=== PATIENT | female | born 1940 | race Caucasian/White ===

== ENCOUNTER 2017-07-28 22:07 | Emergency (ER) | payer MEDICARE ==
[~2017-07-28] VITALS: Ht 165.1 cm; Wt 68.0 kg
[~2017-07-28 22:07] MED LIST: GLIPIZIDE XL10 MG PO; GLIPIZIDE XL5 MG PO; GLUCOSAMINE &1 EAC1 PO; LEVOTHYROXINE88 MCG PO; MULTIVITAMINS1 EAC7 PO; VITAMIN D3400 UNIT PO; VITAMIN E200 UNI1 PO
[2017-07-28] MEDS ORDERED: JARDIANCE10 MG PO (22:43)
--- NOTE | 2017-07-29 07:27 | EKG ---
[facility] [address] [facility] [place] [address] Signed Normal sinus rhythm Nonspecific ST abnormality Abnormal ECG When compared with ECG of 28-JUL-2017 22:14, (Unconfirmed) premature ventricular complexes are no longer present Confirmed by UNA ADAMS MD ([id number]) on 07/29/2017 7:27:22 AM Electronically Signed By: UNA ADAMS MD 07/29/17 0727 PATIENT NAME: AZUCENA MEANS Electrocardiogram DATE OF : 36 PHYSICIAN: UNA ADAMS MD REPORT #: [id number] REPORT IS CONFIDENTIAL AND NOT TO BE RELEASED WITHOUT AUTHORIZATION
== END 2017-07-29 01:20 | disposition home or self-care (01) ==
LOC: ED 22:07
DX: R07.89 Other chest pain (principal); E11.9 Type 2 diabetes mellitus without complications; Z90.710 Acquired absence of both cervix and uterus; Z90.49 Acquired absence of other specified parts of digestive tract; Z88.5 Allergy status to narcotic agent; Z79.84 Long term (current) use of oral hypoglycemic drugs; Z79.899 Other long term (current) drug therapy; Z88.8 Allergy status to other drugs, medicaments and biological substances
CPT/HCPCS: 71010; 71260; 80053; 82550; 82553; 83874; 84484; 85025; 85379; 85610; 85730; 93005; 93010; 96374; 99284; J1885; Q9967

== ENCOUNTER 2022-04-25 08:49 | Day surgery (SDC) | payer MEDICARE ==
[~2022-04-25] VITALS: Ht 167.6 cm; Wt 69.0 kg
[~2022-04-25 08:49] MED LIST changes: +BYETTA10 MCG/0.0 SUB-Q; +JARDIANCE10 MG PO
--- NOTE | 2022-04-25 17:27 | OR ---
[facility] [address] [place], [place] [address] Signed DATE OF OPERATION: 04/25/2022 SURGEON: Maribel Perez MD PREOPERATIVE DIAGNOSES: 1. Colonoscopy at age 68 in 2008 with two serrated adenomatous polyps removed, less than 5 mm each. 2. Diverticulosis. 3. 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 POSTOPERATIVE DIAGNOSES: 1. Moderate sigmoid diverticulosis. 2. 4 mm polyp at 55 cm. 3. No mass noted in right colon. PROCEDURE: Colonoscopy with hot biopsy. ESTIMATED BLOOD LOSS: None. INDICATIONS: Azucena is an 81-year-old female I have known for many years. I have helped her and her both in the past. In 2008, I helped her with her initial screening colonoscopy at the age of 68. She had two serrated adenomatous polyps removed. Both were less than 5 mm in diameter. She also has sigmoid diverticulosis. She had done well with Versed and fentanyl. We had asked her to follow up in 5 years for repeat colonoscopy. However, she has declined additional colonoscopies. Her primary care provider had retired and she established with a new primary care provider. She was having crampy lower abdominal pain after eating. It was more so on the right. She therefore underwent a CT scan of the abdomen and pelvis. There appears to be a 4 cm apple-core lesion in the right colon. Also, the diverticulosis in the left colon was noted. She was asked to see me expeditiously in the office. Her son and daughter came with her to the office. Her was not able to come on this occasion. Her daughter happens to be a registered nurse. On physical exam, I really cannot appreciate any mass in the right side of her abdomen. We had reviewed colonoscopy in detail. She understands there is risk including, but not limited to gas bloating, crampy abdominal pain, bleeding, perforation requiring surgery, and missed diagnosis. We also reviewed the need for IV conscious sedation. She had expressed understanding and wished to proceed. Electronically Signed By: MARIBEL PEREZ MD 04/25/22 1727 PATIENT NAME: AZUCENA MEANS OPERATIVE REPORT DATE OF : 36 REPORT #: [id number] PHYSICIAN: MARIBEL PEREZ MD PCP: JAIME TREVINO MD REPORT IS CONFIDENTIAL AND NOT TO BE RELEASED WITHOUT AUTHORIZATION [facility] [address] [place], [place] [address] Signed PROCEDURE NOTE: Azucena was taken into our endoscopy suite and placed in the left lateral decubitus position. She was given 4.5 mg of Versed and 100 mcg of fentanyl to cover the entire case. A digital rectal exam was performed and this was unremarkable. The adult colonoscope was then introduced and advanced under direct visualization of the camera. Azucena is somewhat tall with long arms and legs. Consequently her colon is somewhat long as well. It took a few minutes with some extra sedation and abdominal compression in order to get the scope up through her sigmoid colon. She has moderate diverticula in the sigmoid and left colon. After that, the scope passed fairly readily around to the right colon and then down into the cecum itself. Her prep was quite good. We could easily see the appendiceal orifice and the ileocecal valve. In fact, we turned the camera and went up into the terminal ileum just a few cm. We came back in the colon, we looked around very carefully. We withdrew the scope very slowly and with all of us watching very carefully in the room. We never could find any evidence of an apple-core lesion whatsoever anywhere in the right colon including the remainder of the colon. We did encounter a polyp back at 55 cm. It was easily removed with a hot biopsy forceps. The rectum itself was unremarkable. Upon retroflexion of the scope, there was no additional pathology noted above the anal canal. After this, the gas was suctioned out and the colonoscope removed. Azucena tolerated the procedure quite well. RECOMMENDATIONS: I did review the CT scan once again along with the images. It could be that she has an intermittent intussusception. She might consider a barium enema and/or small-bowel follow-through. I will see her back in the office in 7 to 14 days to review her results. Maribel Perez MD ALB/MODL /[id number] cc: MD Jaime Salgado MD Electronically Signed By: MARIBEL PEREZ MD 04/25/22 1727 PATIENT NAME: AZUCENA MEANS OPERATIVE REPORT DATE OF : 36 REPORT #: [id number] PHYSICIAN: MARIBEL PEREZ MD PCP: JAIME TREVINO MD REPORT IS CONFIDENTIAL AND NOT TO BE RELEASED WITHOUT AUTHORIZATION [address] [address] Signed Copies: MARIBEL PEREZ MD ~ Electronically Signed By: MARIBEL PEREZ MD 04/25/22 1727 PATIENT NAME: AZUCENA MEANS OPERATIVE REPORT DATE OF : 36 REPORT #: [id number] PHYSICIAN: MARIBEL PEREZ MD PCP: JAIME TREVINO MD REPORT IS CONFIDENTIAL AND NOT TO BE RELEASED WITHOUT AUTHORIZATION
--- NOTE | 2022-04-27 07:51 | PATH ---
[facility] [address] [place], [place] [address] Signed SPECIMEN(S): A COLON POLYP AT 50 CM SPECIMEN SOURCE: A. COLON POLYP AT 50 CM CLINICAL HISTORY: Colonoscopy. Neoplasm right colon. Post: Diverticulosis, colon polyp. FINAL PATHOLOGIC DIAGNOSIS: Colon, polyp at 50 cm, polypectomy: - Tubular adenoma. - Negative for high-grade dysplasia or malignancy. NAL:cml:C2NR MICROSCOPIC EXAMINATION: Histologic sections of all submitted blocks are examined by light microscopy. These findings, together with the gross examination, support the pathologic diagnosis. GROSS DESCRIPTION: The specimen, labeled "EE, 1," and designated on the requisition "colon polyp at 50 cm," is received in formalin and consists of one rojas soft tissue fragment that measures 0.3 cm in greatest dimension. The specimen is entirely submitted in cassette (A1). AT (under the direct supervision of a pathologist) The Gross Description was prepared using a voice recognition system. The report was reviewed for accuracy; however, sound-alike word errors, addition and/or deletions may occur. If there is any question about this report, please contact Client Services. PERFORMING LABORATORY: The technical component was performed by [facility], [address] [place] [id number] (CLIA# [id number]). [facility] [address] [address] (CLIA# [id number]). Diagnostician: Tigist Connors MD Pathologist Electronically Signed 04/27/2022 PATIENT NAME: AZUCENA MEANS PATHOLOGY DATE OF : 36 REPORT #: [id number] PHYSICIAN: HEIDY PATHOLOGY PCP: BIENVENIDO TREVINO MD REPORT IS CONFIDENTIAL AND NOT TO BE RELEASED WITHOUT AUTHORIZATION [address] [place], [place] [address] Signed Copies: ~ PATIENT NAME: AZUCENA MEANS PATHOLOGY DATE OF : 36 REPORT #: [id number] PHYSICIAN: HEIDY PATHOLOGY PCP: BIENVENIDO TREVINO MD REPORT IS CONFIDENTIAL AND NOT TO BE RELEASED WITHOUT AUTHORIZATION
== END 2022-04-25 13:15 | disposition home or self-care (01) ==
LOC: DS 08:49
PROVIDERS: ATTEND Colon & Rectal Surgery
PROC: 0DBE8ZX Excision of Large Intestine, Via Natural or Artificial Opening Endoscopic, Diagnostic (ICD-10-PCS; principal; 2022-04-25 10:30)
DX: D12.6 Benign neoplasm of colon, unspecified (principal); E03.9 Hypothyroidism, unspecified; E11.9 Type 2 diabetes mellitus without complications; K57.30 Diverticulosis of large intestine without perforation or abscess without bleeding; Z90.49 Acquired absence of other specified parts of digestive tract; Z79.84 Long term (current) use of oral hypoglycemic drugs; Z88.5 Allergy status to narcotic agent
CPT/HCPCS: 80053; 82378; 85025; 99153; G0500; J2250; J3010; J7121

== ENCOUNTER 2023-07-17 19:08 | Observation (INO) | payer MEDICARE ==
[~2023-07-17] VITALS: Ht 167.6 cm; Wt 69.0 kg
[2023-07-17 19:40] LABS: BASOPHILS 1.9 % (0-2); EOSINOPHILS 1.6 % (0-6); HEMATOCRIT 39.5 % (35.0-50.0); HEMOGLOBIN 12.9 g/dL (12.0-18.0); LYMPHOCYTES 15.2 % (24-44); MCH 29.8 (27-36); MCHC 32.8 g/dl (30-36); MCV 90.8 fl (81-99); NEUTROPHILS 72.3 % (39-80); PLATELET COUNT 158 K/uL (140-440); RBC 4.35 M/ul (4.3-5.7); RDW 13.6 (10.5-15.0)
[2023-07-17 19:52] LABS: ALBUMIN 3.5 g/dL (3.4-5.0); ANION GAP 13.9 (7-21); BILIRUBIN, TOTAL 0.4 ng/dL (0.2-1.0); BUN/CREATININE RATIO 16.66 (6.0-28.6); CALCIUM 9.5 mg/dL (8.5-10.1); CREATININE, SERUM 0.9 mg/dL (0.55-1.02); POTASSIUM 3.9 mmol/L (3.5-5.1)
[2023-07-17 20:16] LABS: INFLUENZA B NAA NEGATIVE (NEGATIVE); RESPIRATORY SYNCYTIAL VIR NAA NEGATIVE (NEGATIVE)
[2023-07-17 21:13] LABS: BILIRUBIN, URINE NEGATIVE (negative); BLOOD/HGB, URINE NEGATIVE (Negative); KETONE, URINE SMALL (Negative); LEUK ESTERASE, URINE TRACE (negative); NITRITE, URINE POSITIVE (negative); PH, URINE 5.5 (5-7)
[2023-07-17 21:21] LABS: BACTERIA, URINE 3+ /hpf (negative); CASTS, URINE NONE SEEN \\lpf; COLLECTION TYPE, URINE CLEAN CATCH; CRYSTALS, URINE NONE SEEN (0-1+); EPITHELIAL CELLS, URINE SQUAMOUS 1+ /lpf (0-1+); RED BLOOD CELLS, URINE 0-1 /hpf (0-5); REFLEX CULTURE, URINE Yes (No)
[2023-07-17 22:13] VITALS: BP 117/58
[2023-07-17 23:04] VITALS: BP 98/44
[2023-07-18] VITALS (11 sets, daily range): BP systolic 90–127; BP diastolic 47–66
[2023-07-18 05:28] LABS: BASOPHILS 0.6 % (0-2); HEMATOCRIT 39.4 % (35.0-50.0); HEMOGLOBIN 12.8 g/dL (12.0-18.0); LYMPHOCYTES 11.5 % (24-44); MCH 29.6 (27-36); MCHC 32.5 g/dl (30-36); MCV 91.2 fl (81-99); MONOCYTES 1.7 % (0-12); NEUTROPHILS 86.2 % (39-80); PLATELET COUNT 151 K/uL (140-440); RBC 4.32 M/ul (4.3-5.7); RDW 13.9 (10.5-15.0)
[2023-07-18 05:44] LABS: ALBUMIN 3.1 g/dL (3.4-5.0); ALBUMIN/GLOBULIN RATIO 0.89 (1.1-2.4); ANION GAP 14.7 (7-21); BILIRUBIN, TOTAL 0.3 ng/dL (0.2-1.0); BUN/CREATININE RATIO 15.46 (6.0-28.6); CREATININE, SERUM 0.97 mg/dL (0.55-1.02); MAGNESIUM 1.7 mg/dL (1.8-2.4); POTASSIUM 4.7 mmol/L (3.5-5.1); PROTEIN, TOTAL 6.6 g/dL (6.4-8.2)
[2023-07-18] MEDS ORDERED: OXYBUTYNIN CHLO10 MG PO (09:09)
[2023-07-18] MEDS ORDERED: LEVOTHYROXINE75 MCG PO (09:17)
== END 2023-07-18 14:15 | disposition home or self-care (01) ==
LOC: ED 19:08 → CCU 19:10
PROVIDERS: Family Medicine; ADMIT Family Medicine; ATTEND Family Medicine
DX: J96.01 Acute respiratory failure with hypoxia (principal); U07.1 COVID-19; E03.9 Hypothyroidism, unspecified; E11.9 Type 2 diabetes mellitus without complications; Z88.5 Allergy status to narcotic agent; Z88.1 Allergy status to other antibiotic agents; Z88.8 Allergy status to other drugs, medicaments and biological substances
CPT/HCPCS: 36415; 71045; 80053; 81001; 83690; 83735; 85025; 87088; 87502; 96361; 96365; 96375; 99285-25; C9803; G0378; J0248; J0780; J1100; J7030; J7050; J7121; U0002

== ENCOUNTER 2023-07-20 20:30 | Observation (INO) | payer MEDICARE ==
[~2023-07-20] VITALS: Ht 167.6 cm; Wt 69.0 kg
[~2023-07-20 20:30] MED LIST changes: +LEVOTHYROXINE75 MCG PO; +OXYBUTYNIN CHLO10 MG PO
--- OUTSIDE RECORDS SUMMARY | 2023-07-20 20:38 | XMS ---
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 Liza has no Care Guidelines for this patient. [facility] V[facility] (12 MO.) [facility] T[facility] NOTE: Visits indicate total known visits. ED/C VISIT TRACKING (12 MO.) [facility] COMPLAINT: - ADB PAIN 07/17/2023 19:09 [facility] [place] TYPE: Emergency COMPLAINT: - ABD PAIN INPATIENT VISIT TRACKING (12 MO.) 07/17/2023 19:10 [facility] [place] TYPE: Observation COMPLAINT: - COVID 19 HYPOXIA DIAGNOSES: - Acute respiratory failure with hypoxia - Allergy status to narcotic agent - Allergy status to other antibiotic agents - Allergy status to other drugs, medicaments and biological substances - COVID-19 - Hypothyroidism, unspecified - Type 2 diabetes mellitus without complications [email or web address]
[2023-07-20 22:15] LABS: BASOPHILS 0.5 % (0-2); EOSINOPHILS 0.4 % (0-6); HEMATOCRIT 41.7 % (35.0-50.0); HEMOGLOBIN 13.7 g/dL (12.0-18.0); LYMPHOCYTES 38.3 % (24-44); MCH 29.4 (27-36); MCHC 32.8 g/dl (30-36); MCV 89.7 fl (81-99); MONOCYTES 11.2 % (0-12); NEUTROPHILS 49.6 % (39-80); PLATELET COUNT 132 K/uL (140-440); RBC 4.65 M/ul (4.3-5.7); RDW 13.8 (10.5-15.0)
[2023-07-20 22:29] LABS: BILIRUBIN, URINE NEGATIVE (negative); BLOOD/HGB, URINE NEGATIVE (Negative); KETONE, URINE TRACE (Negative); LEUK ESTERASE, URINE NEGATIVE (negative); NITRITE, URINE POSITIVE (negative); PH, URINE 5.5 (5-7)
[2023-07-20 22:30] LABS: ALBUMIN 3.2 g/dL (3.4-5.0); ALBUMIN/GLOBULIN RATIO 0.94 (1.1-2.4); ANION GAP 12.5 (7-21); BILIRUBIN, TOTAL 0.4 ng/dL (0.2-1.0); BUN/CREATININE RATIO 17.97 (6.0-28.6); CALCIUM 8.7 mg/dL (8.5-10.1); CREATININE, SERUM 0.89 mg/dL (0.55-1.02); MAGNESIUM 1.6 mg/dL (1.8-2.4); POTASSIUM 3.5 mmol/L (3.5-5.1); PROTEIN, TOTAL 6.6 g/dL (6.4-8.2)
[2023-07-20 22:35] LABS: EPITHELIAL CELLS, URINE SQUAMOUS 1+ /lpf (0-1+)
[2023-07-20 22:36] LABS: BACTERIA, URINE 4+ /hpf (negative); CASTS, URINE NONE SEEN \\lpf; CRYSTALS, URINE NONE SEEN (0-1+); REFLEX CULTURE, URINE Yes (No); WHITE BLOOD CELLS, URINE 21-40 /HPF (0-5)
[2023-07-21 00:30] VITALS: BP 95/50
[2023-07-21 05:06] VITALS: BP 107/52
[2023-07-21 08:30] LABS: EOSINOPHILS 0.2 % (0-6); HEMOGLOBIN 12.9 g/dL (12.0-18.0); PLATELET COUNT 104 K/uL (140-440)
[2023-07-21 08:33] LABS: BASOPHILS 0.8 % (0-2); HEMATOCRIT 39.5 % (35.0-50.0); MCH 29.4 (27-36); MCHC 32.6 g/dl (30-36); MCV 90.2 fl (81-99); MONOCYTES 11.8 % (0-12); NEUTROPHILS 47.2 % (39-80); RBC 4.38 M/ul (4.3-5.7); RDW 13.8 (10.5-15.0)
[2023-07-21 08:44] LABS: ALBUMIN 2.8 g/dL (3.4-5.0); ALBUMIN/GLOBULIN RATIO 0.9 (1.1-2.4); ANION GAP 7.8 (7-21); BILIRUBIN, TOTAL 0.4 ng/dL (0.2-1.0); BUN/CREATININE RATIO 21.95 (6.0-28.6); CALCIUM 8.3 mg/dL (8.5-10.1); CREATININE, SERUM 0.82 mg/dL (0.55-1.02); MAGNESIUM 2.3 mg/dL (1.8-2.4); PHOSPHORUS, INORGANIC 3.8 mg/dL (2.5-4.9); POTASSIUM 3.8 mmol/L (3.5-5.1); PROTEIN, TOTAL 5.9 g/dL (6.4-8.2)
[2023-07-21 10:17] VITALS: BP 107/62
[2023-07-21 15:01] VITALS: BP 113/55
[2023-07-21 17:23] VITALS: BP 102/63
[2023-07-21 20:28] VITALS: BP 118/68
[2023-07-22 04:50] VITALS: BP 108/72
[2023-07-22 05:17] LABS: BASOPHILS 0.9 % (0-2); EOSINOPHILS 0.1 % (0-6); HEMATOCRIT 39.7 % (35.0-50.0); HEMOGLOBIN 12.9 g/dL (12.0-18.0); LYMPHOCYTES 33.7 % (24-44); MCH 29.5 (27-36); MCHC 32.6 g/dl (30-36); MCV 90.5 fl (81-99); MONOCYTES 11.9 % (0-12); NEUTROPHILS 53.4 % (39-80); PLATELET COUNT 105 K/uL (140-440); RBC 4.39 M/ul (4.3-5.7); RDW 13.7 (10.5-15.0)
[2023-07-22 05:31] LABS: ALBUMIN 2.9 g/dL (3.4-5.0); ALBUMIN/GLOBULIN RATIO 0.88 (1.1-2.4); ANION GAP 9.1 (7-21); BILIRUBIN, TOTAL 0.4 ng/dL (0.2-1.0); BUN/CREATININE RATIO 22.85 (6.0-28.6); CALCIUM 8.8 mg/dL (8.5-10.1); CREATININE, SERUM 0.7 mg/dL (0.55-1.02); POTASSIUM 4.1 mmol/L (3.5-5.1); PROTEIN, TOTAL 6.2 g/dL (6.4-8.2)
[2023-07-22 09:56] VITALS: BP 134/74
[2023-07-22] MEDS ORDERED: LEVOFLOXACIN750 MG PO ×2 (12:53)
[2023-07-22] MEDS ORDERED: PREDNISONE20 MG PO ×2 (12:55)
[2023-07-22 13:30] VITALS: BP 129/55
== END 2023-07-22 13:50 | disposition home or self-care (01) ==
LOC: ED 20:30 → MS 20:31
PROVIDERS: Emergency Medicine; ADMIT Family Medicine; ATTEND Family Medicine
DX: U07.1 COVID-19 (principal); J96.00 Acute respiratory failure, unspecified whether with hypoxia or hypercapnia; N39.0 Urinary tract infection, site not specified; E83.42 Hypomagnesemia; E11.9 Type 2 diabetes mellitus without complications; E03.9 Hypothyroidism, unspecified; Z88.5 Allergy status to narcotic agent; Z88.1 Allergy status to other antibiotic agents
CPT/HCPCS: 36415; 71045; 80053; 81001; 83735; 84100; 85025; 87088; 94761; 94762; 96361; 96365; 96368; 96372; 96374; 96375; 96376; 97161; 99285-25; G0378; J1100; J1650; J1815; J1956; J2405; J3475; J7121

== ENCOUNTER 2023-10-21 10:29 | Emergency (ER) | payer MEDICARE ==
[~2023-10-21] VITALS: Ht 167.6 cm; Wt 71.6 kg
[~2023-10-21 10:29] MED LIST changes: +LEVOFLOXACIN750 MG PO; +PREDNISONE20 MG PO
[2023-10-21 10:49] LABS: BASOPHILS 1.2 % (0-2); EOSINOPHILS 2.6 % (0-6); HEMOGLOBIN 13.5 g/dL (12.0-18.0); LYMPHOCYTES 36.2 % (24-44); MCHC 32.9 g/dl (30-36); MCV 91.2 fl (81-99); MONOCYTES 7.1 % (0-12); NEUTROPHILS 52.9 % (39-80); PLATELET COUNT 182 K/uL (140-440); RBC 4.49 M/ul (4.3-5.7); RDW 13.6 (10.5-15.0)
[2023-10-21 11:00] LABS: INR 1.14 (0.80-1.30); PARTIAL THROMBOPLASTIN TIME 24.8 Sec (22.9-41.3); PROTIME 14.1 Sec (11.2-14.2)
[2023-10-21 11:18] LABS: ALBUMIN 3.8 g/dL (3.4-5.0); ALBUMIN/GLOBULIN RATIO 1.23 (1.1-2.4); ANION GAP 11.9 (7-21); BILIRUBIN, TOTAL 0.7 ng/dL (0.2-1.0); BUN/CREATININE RATIO 12.64 (6.0-28.6); CALCIUM 9.5 mg/dL (8.5-10.1); CREATININE, SERUM 0.87 mg/dL (0.55-1.02); POTASSIUM 3.9 mmol/L (3.5-5.1); PROTEIN, TOTAL 6.9 g/dL (6.4-8.2)
[2023-10-21 12:20] LABS: INFLUENZA B NAA NEGATIVE (NEGATIVE); RESPIRATORY SYNCYTIAL VIR NAA NEGATIVE (NEGATIVE)
[2023-10-21 15:50] VITALS: BP 135/61
--- NOTE | 2023-10-21 23:21 | EKG ---
[facility] [address] [facility] [place] [address] Signed Sinus rhythm with premature atrial complexes Low voltage QRS Borderline ECG When compared with ECG of 28-JUL-2017 22:16, premature atrial complexes are now present Nonspecific T wave abnormality now evident in Inferior leads Confirmed by Clarisa Seay MD () on 10/21/2023 11:20:51 PM Electronically Signed By: CLARISA SEAY MD 10/21/232320 PATIENT NAME: AZUCENA MEANS Electrocardiogram DATE OF : 36 PHYSICIAN: CLARISA SEAY MD REPORT #: [id number] REPORT IS CONFIDENTIAL AND NOT TO BE RELEASED WITHOUT AUTHORIZATION
== END 2023-10-21 15:40 | disposition short-term general hospital (02) ==
LOC: ED 10:29
PROVIDERS: Emergency Medicine
DX: I63.9 Cerebral infarction, unspecified (principal); G83.24 Monoplegia of upper limb affecting left nondominant side; U07.1 COVID-19; E11.9 Type 2 diabetes mellitus without complications; Z88.5 Allergy status to narcotic agent; Z88.1 Allergy status to other antibiotic agents; Z79.84 Long term (current) use of oral hypoglycemic drugs; Z79.899 Other long term (current) drug therapy
CPT/HCPCS: 36415; 70450; 70496; 70498; 71045; 80053; 85025; 85610; 85730; 87502; 93005; 93010; C9803; J2405; J3101; Q9967; U0002

== ENCOUNTER 2023-11-15 14:24 | Inpatient (IN) | payer MEDICARE ==
[~2023-11-15] VITALS: Ht 167.6 cm; Wt 66.9 kg
--- NOTE | ~2023-11-15 | EKG ---
[facility] [address] [facility] [place], [place] [address] Draft EKG completed, results pending confirmation PATIENT NAME: AZUCENA MEANS Electrocardiogram DATE OF : 36 PHYSICIAN: PRELIMINARY REPORT #: [id number] REPORT IS CONFIDENTIAL AND NOT TO BE RELEASED WITHOUT AUTHORIZATION
--- NOTE | ~2023-11-15 | EKG ---
[facility] [address] [facility] [place], [place] [address] Draft EK completed, results pending confirmation PATIENT NAME: AZUCENA MEANS Electrocardiogram DATE OF : 36 PHYSICIAN: PRELIMINARY REPORT #: [id number] REPORT IS CONFIDENTIAL AND NOT TO BE RELEASED WITHOUT AUTHORIZATION
[~2023-11-15 14:24] MED LIST changes: +MACROBID 100 M100 MG PO
--- OUTSIDE RECORDS SUMMARY | 2023-11-15 14:31 | XMS ---
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 Liza has no Care Guidelines for this patient. [facility] MO[facility] NOTE: Visits indicate total known visits. ED/UCC VISIT TRACKING (12 MO.) [facility]2023 14:24 [facility] COMPLAINT: - WEAKNESS 11/13/2023 17:51 [facility] [place] TYPE: Emergency COMPLAINT: - VOMITING DIAGNOSES: - Allergy status to narcotic agent - Allergy status to other drugs, medicaments and biological substances - Hormone replacement therapy - Nausea with vomiting, unspecified - Other intermediate (current) drug therapy - Personal history of transient ischemic attack (TIA), and cerebral infarction without residual deficits - Type 2 diabetes mellitus without complications - Urinary tract infection, site not specified 2023 10:30 [facility] [place] TYPE: Emergency COMPLAINT: - LEFT ARM NUMBESS DIAGNOSES: - Allergy status to narcotic agent - Allergy status to other antibiotic agents - Anesthesia of skin - Cerebral infarction, unspecified - COVID-19 - 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 Acute respiratory failure with hypoxia 506[address]. Influenza due to other identified influenza virus with other respiratory manifestations 2023 18:10 [facility] TYPE: Neurology DIAGNOSES: 927[address]. Cerebral infarction, unspecified 82019. Stroke, post TNK, COVID POSITIVE 67381. Cerebral infarction, unspecified 79395. Other cerebrovascular disease 07/20/2023 20:31 [facility] [place] TYPE: Observation COMPLAINT: - COVID HYPOXIA DIAGNOSES: - Acute respiratory failure, unspecified whether with hypoxia or hypercapnia - Allergy status to narcotic agent - Allergy status to other antibiotic agents - COVID-19 - Hypomagnesemia - Hypothyroidism, unspecified - Type 2 diabetes mellitus without complications - Urinary tract infection, site not specified 07/17/2023 19:10 [facility] [place] TYPE: Observation COMPLAINT: - COVID 19 HYPOXIA DIAGNOSES: - Acute respiratory failure with hypoxia - Allergy status to narcotic agent - Allergy status to other antibiotic agents - Allergy status to other drugs, medicaments and biological substances - COVID-19 - Hypothyroidism, unspecified - Type 2 diabetes mellitus without complications [email or web address]
[2023-11-15] MEDS ORDERED: NITROFURANTOIN100 M1 PO (14:37)
[2023-11-15 15:07] LABS: HEMATOCRIT 36.2 % (35.0-50.0); HEMOGLOBIN 12.1 g/dL (12.0-18.0); MCH 30.2 (27-36); MCHC 33.4 g/dl (30-36); MCV 90.5 fl (81-99); PLATELET COUNT 222 K/uL (140-440); RDW 12.8 (10.5-15.0)
[2023-11-15 15:22] LABS: ALBUMIN 2.6 g/dL (3.4-5.0); ALBUMIN/GLOBULIN RATIO 0.63 (1.1-2.4); ANION GAP 13.9 (7-21); BILIRUBIN, TOTAL 0.9 ng/dL (0.2-1.0); BUN/CREATININE RATIO 15.9 (6.0-28.6); CALCIUM 8.7 mg/dL (8.5-10.1); CREATININE, SERUM 0.88 mg/dL (0.55-1.02); MAGNESIUM 1.6 mg/dL (1.8-2.4); POTASSIUM 3.9 mmol/L (3.5-5.1); PROTEIN, TOTAL 6.7 g/dL (6.4-8.2)
[2023-11-15 15:25] LABS: BANDS, MANUAL DIFF 2; LYMPHOCYTES, MANUAL DIFF 11; MONOCYTES, MANUAL DIFF 11; NEUTROPHILS, MANUAL DIFF 76
[2023-11-15 15:59] LABS: INFLUENZA B NAA NEGATIVE (NEGATIVE); RESPIRATORY SYNCYTIAL VIR NAA NEGATIVE (NEGATIVE)
[2023-11-15 16:30] LABS: BILIRUBIN, URINE NEGATIVE (negative); BLOOD/HGB, URINE NEGATIVE (Negative); KETONE, URINE SMALL (Negative); LEUK ESTERASE, URINE NEGATIVE (negative); NITRITE, URINE NEGATIVE (negative); PH, URINE 5.5 (5-7)
[2023-11-15 16:38] LABS: CRYSTALS, URINE NONE SEEN (0-1+); EPITHELIAL CELLS, URINE SQUAMOUS 1+ /lpf (0-1+); RED BLOOD CELLS, URINE 0-1 /hpf (0-5)
[2023-11-15 16:39] LABS: BACTERIA, URINE RARE /hpf (negative); CASTS, URINE NONE SEEN \\lpf; COLLECTION TYPE, URINE CLEAN CATCH; REFLEX CULTURE, URINE Yes (No)
[2023-11-15 19:08] VITALS: BP 98/60
--- NOTE | 2023-11-15 20:00 | NUR ---
PATIENT ADMISSION COMPLETE. PATIENT TITRATED FROM 3L TO ROOM AIR; Sp02 88-92% ON ROOM AIR. TITRATED BACK TO 1L NC. DISCUSSED WITH RT. PATIENT LUNG SOUNDS ARE CLEAR IN THE UPPER LOBES, DIM IN THE BASES. PATIENT HAS FREQUENT DRY COUGH. DENIED FEELING SOB. NO NAUSEA AT THIS TIME. BOWEL SOUNDS ACTIVE. PATIENT HAS BEEN DRIBBLING URINE WITH EACH COUGH, PURE WIC PLACED. IV SITE WNL, FLUSHED AND SL. PATIENT ORIENTED TO THE ROOM, ORIENTED X4. WATER PROVIDED, PATIENT DENIED OFFER OF FOOD. CALL LIGHT IN REACH.
--- NOTE | 2023-11-15 22:30 | NUR ---
PATIENT RESTING IN BED. WAKES WHEN RN ENTERS ROOM. REPORTS FREQUENT COUGHING BUT DENIED ANY NEEDS. VS STABLE. TOLERATING 1L NC. PURE WIC WORKING WELL. CALL LIGHT IN REACH.
[2023-11-15 23:10] VITALS: BP 91/54
[2023-11-16] VITALS (9 sets, daily range): BP systolic 95–113; BP diastolic 45–66
--- NOTE | 2023-11-16 00:30 | NUR ---
PATIENT RESTING IN BED. WAKES EASILY TO VOICE. DENIED ANY CONCERNS. TOLERATING 1L NC.
--- NOTE | 2023-11-16 02:00 | NUR ---
PATIENT APPEARS TO BE RESTING QUIETLY. VS STABLE. TOLERATING 1L NC.
--- NOTE | 2023-11-16 04:15 | NUR ---
PATIENT REPORTS BACK PAIN, DENIED PRN TYLNEOL. PATIENT ASSISTED TO TURN TO HER SIDE AND POSITIONED FOR COMFORT. PATIENT CONTINUES TO HAVE A HARSH COUGH. TOLERATING 1L NC. VS STABLE.
[2023-11-16 05:29] LABS: BASOPHILS 0.4 % (0-2); EOSINOPHILS 0.2 % (0-6); HEMATOCRIT 34.6 % (35.0-50.0); HEMOGLOBIN 11.3 g/dL (12.0-18.0); LYMPHOCYTES 11.7 % (24-44); MCH 29.5 (27-36); MCHC 32.8 g/dl (30-36); MONOCYTES 11.6 % (0-12); NEUTROPHILS 76.1 % (39-80); PLATELET COUNT 218 K/uL (140-440); RBC 3.84 M/ul (4.3-5.7); RDW 13.2 (10.5-15.0)
[2023-11-16 05:42] LABS: ANION GAP 8.6 (7-21); BUN/CREATININE RATIO 17.02 (6.0-28.6); CALCIUM 8.4 mg/dL (8.5-10.1); CREATININE, SERUM 0.94 mg/dL (0.55-1.02); MAGNESIUM 1.6 mg/dL (1.8-2.4); POTASSIUM 3.6 mmol/L (3.5-5.1)
--- NOTE | 2023-11-16 06:17 | NUR ---
PATIENT REPORTS SUDDEN ONSET OF CHEST PAIN. PAIN IS LEFT CENTRAL AND BACK INTO HER SHOULDERS. PATIENT REPORTS PAIN FEELS "LIKE IT'S JUST RIPPING ME OPEN". PATIENT HAS HAD SIMILAR PAIN WHEN SHE HAS HAD "HEART TROUBLE" IN THE PAST. REPORTED TO . ORDERS FOR TROPONINS AND EKG. RT AND LAB CALLED.
--- NOTE | 2023-11-16 07:30 | NUR ---
REPORT RECEIVED FROM NIGHT RN. ALL QUESTIONS ANSWERED.
--- NOTE | 2023-11-16 07:39 | NUR ---
UPDATE GIVEN TO PATIENT'S DAUGHTER IN LAW, MIKE. PER PATIENT REQUEST.
--- NOTE | 2023-11-16 08:21 | NUR ---
PT GETTING ECHO AT THIS TIME
--- NOTE | 2023-11-16 09:30 | NUR ---
PT AND ST IN ROOM TO SEE PATIENT AT THIS TIME.
--- NOTE | 2023-11-16 10:08 | NUR ---
PT SITTING UP IN RECLINER. REMAINS ON 1L O2 NC WITH O2 SAT 93%. CLEAR, DIM LUNG SOUDNS THROUGHOUT. PT WITH DRY COUGH. PT DENIES PAIN OR NEEDS AT THIS TIME. CALL LIGHT IN REACH.
--- NOTE | 2023-11-16 10:47 | NUR ---
PT RESTING IN CHAIR, RESPIRATIONS EVEN AND UNLABORED. AWAKENS EASILY. CALL LIGHT IN REACH.
--- NOTE | 2023-11-16 13:52 | NUR ---
MED REC COMPLETE
--- NOTE | 2023-11-16 14:10 | NUR ---
IN TO SEE PATIENT. PATIENT AWAKE IN BED WITH DAUGHTER IN LAW GAMBINO AT THE BEDSIDE. PATIENT STATES SHE LIVES AT HOME WITH HER LULÚ. PATIENT STATES THEY LIVE [place] HOME, BUT THEY STAY MOSTLY TO THE MAIN FLOOR. PATIENT STATES HER LAUNDRY ROOM IS DOWNSTAIRS, BUT SHE MANAGES THE STEPS WITH THE ASSISTANCE OF HER . PATIENT DOES HAVE A WALKER AT HOME, BUT USUALLY DOES NOT USE IT EVEN THOUGH SHE RECENTLY HAD A CVA. PATIENT AND HER BOTH DRIVE AND SHOP AT THIS TIME. PATIENT HAS SEEN DR. PATIÑO RECENTLY. PATIENT DAUGHTER IN LAW GAMBINO VOICING SOME CONCERN ABOUT THE ABILITY FOR THE PATIENT AND HER TO CARE FOR THEMSELVES AT HOME. IMMANUEL STATES PATIENT DAUGHTER KEISHA [phone] WOULD LIKE A CALL TO DISCUSS THEIR CONCERNS FURTHER. PATIENT IS AGREEABLE TO ME CONTACTING KEISHA. PATIENT STATES SHE PLANS TO RETURN HOME WITH HER AT DISCHARGE. SHE STATES THEY HAVE DISCUSS ADDING GRAB BARS TO THEIR SHOWER AND BATHTUB FOR ASSISTANCE. WHEN ASKING PATIENT IF THEY HAD CONSIDERED WHAT THE COUPLE WOULD DO IF THEY WERE UNABLE TO CARE FOR EACH OTHER AT SOME POINT. PATIENT GOES ON TO JOKE ABOUT DYING IN HER SLEEP, THEN STATES HER AND HER WOULD THINK ABOUT IT. PATIENT STATES THEY DO NOT WANT TO LEAVE THEIR HOME AT THIS TIME.
--- NOTE | 2023-11-16 14:47 | NUR ---
SPOKE WITH KEISHA PATIENT DAUGHTER IN LAW. SHE EXPRESSES CONCERN FOR HER FATHER AND MOTHER IN-LAWS ABILITY TO CARE FOR THEMSELVES AT HOME. KEISHA STATES SHE HAS A BROTHER WHO LIVES IN THE [facility]. KEISHA AND IMMANUEL BOTH LIVE IN [place]. SHE STATES THEY HAVE ALL OFFERED TO ASSIST OR HOUSE THE PATIENT AND HER , BUT THEY HAVE DECLINED. KEISHA STATES SHE IS ALSO AN RN SO SHE IS AWARE THAT THEY ARE UNABLE TO FORCE THEIR PARENTS TO DO ANYTHING AT THIS TIME. ADVISED THAT THE PATIENT WAS DISCUSSING THE NEED FOR SOME HOUSEKEEPING SERVICES. CONTACT INFORMATION TO FAMILY [employer]OURCES GIVEN. ADVISED THIS MAY BE A OPTION TO HAVE A CAREGIVER CHECKING IN ON THEM IF NEEDED. ALSO ADVISED KEISHA THAT I URGED THE PATIENT TO DISCUSS FUTURE PLANNING WITH HER IF IN CASE THE TIME CAME WHERE THEY ARE NO LONGER ABLE TO LIVE AT HOME. KEISHA APPRECIATIVE OF THE INFORMATION AND WILL CONTACT FAMILY RESOURCES.
--- NOTE | 2023-11-16 15:15 | NUR ---
PLACED PT ON RA, O2 SAT WHEN RESTING TO 88%. PT PLACED BACK ON 1L NC O2, O2 SAT 96%
--- NOTE | 2023-11-16 17:48 | NUR ---
PT ASSISTED FROM BED TO RESTROOM AND TO RECLINER WITH FWW. TOLERATED WELL, O2 SAT 95% ON 1L NC. DINNER AT BEDSIDE. PT DENIES FURTHER NEEDS AT THIS TIME. CALL LIGHT IN REACH.
--- NOTE | 2023-11-16 19:45 | NUR ---
SHIFT REPORT RECEIVED. PATIENT APPEARS TO BE RESTING COMFORTABLY. EYES CLOSED. Sp02 >90% ON 1L NC. CALL LIGHT IN REACH.
--- NOTE | 2023-11-16 21:00 | NUR ---
PATIENT UP TO THE BSC. PATIENT REPORTS FEELING VERY WEAK AND IS DROWSY, FALLING ASLEEP WHEN NOT FREQUENTLY STIMULATED. PATIENT PROVIDED PRN TYLENOL FOR A HEADACHE AND THROAT PAIN FROM COUGHING. FRESH WATER PROVIDED. PATIENT VS STABLE. LUNG SOUNDS ARE CLEAR. PATIENT REPORTS FREQUENT DRY COUGH. TOLERATING 1L NC. PATIENT VOIDED AND RETURNED TO BED. WARM BLANKET PROVIDED. PATIENT REPORTS "FEELING LOOPY" AND THINKING SOMEONE IS IN THE ROOM WITH HER SOMETIMES. POSSIBLE PATIENT IS HEARING VISITORS IN THE GUEST ROOM THAT IS NEXT TO HER ROOM. PATIENT ANSWERED ALL ORIENTATION QUESTIONS AND DOES NOT SHOW OTHER SIGNS OF BEING CONFUSED OR TRUE HALLUCINATIONS. ENCOURAGED PATIENT TO SLEEP. LIGHTS DIMMED AND SOUND REDUCED. DOOR CLOSED AND BED ALARM ACTIVE. CALL LIGHT IN REACH.
--- NOTE | 2023-11-17 01:45 | NUR ---
PATIENT TITRATED TO ROOM AIR. PATIENT APPEARS TO BE SLEEPING SOUNDLY. RR 18. CONTINUOUS PULSE OX IN PLACE.
--- NOTE | 2023-11-17 03:00 | NUR ---
ASSISTED PATIENT UP TO THE BSC. PATIENT HAS BEEN TOLERATING ROOM AIR. DENIED FEELING SOB WITH ACTIVITY. PATIENT HAD BEEN HOT AND SWEATY, ORAL TEMP WNL. PATIENT BACK TO BED. CONTINUOUS PULSE OX IN PLACE.
--- NOTE | 2023-11-17 06:51 | NUR ---
PATIENT RESTING ON HER SIDE. BP DONE ON ARM ABOVE HEART, PATIENT DOES NOT WANT TO REPOSITION AT THIS TIME. ALLOWED PATIENT TO REST. PATIENT TOLERATING ROOM AIR. NO OTHER NEEDS AT THIS TIME. CALL LIGHT IN REACH.
[2023-11-17 06:54] VITALS: BP 88/43
--- NOTE | 2023-11-17 07:30 | NUR ---
REPORT RECIEVED FROM PROCESS ANALYST RN. PATIENT RESTING IN BED ON RA AT THIS TIME. PATIENT CALLS APPROPRIATELY.
[2023-11-17 08:00] VITALS: BP 101/52
--- NOTE | 2023-11-17 08:45 | NUR ---
THIS RN AND PALOMO STUDENT TECH IN TO DO AM CARES FOR PATIENT. PATIENT SITTING UP IN BED. PATIENT INITIALLY STATED "I GOT SOME GOOD REST, BUT I AM STILL TIRED". PATIENT VOICE IS VERY WEAK THIS AM. PATIENT REQUESTED TO GO BACK TO SLEEP. PATIENT ON RA WITH DIMINISHED LUNG SOUNDS AND OCC. COUGH. PATIENT SPO2 91%. WILL ENCOURAGE DEEP BREATHING AND COUGHING. PATIENT BREAKFAST PROVIDED AND DENIES ANY OTHER ENEDS. CALL LIGHT IN REACH.
--- NOTE | 2023-11-17 11:00 | NUR ---
MD IN TO DISCUSS PLAN OF CARE WITH PATIENT. PATIENT FEELS VERY WEAK AND DOES NOT HAVE THE ENERGY TO PARTICI[LIZ IN CARE AT THIS TIME. PATIENT REQUIRING 1L OF OXYGEN TO MAINTAIN O2 GREATER THAN 93%. PATIENT DECLINED PHYSIACL THERAPY THIS AM BUT WOULD LIKE TO DO THIS LATER IN THE DAY. PATIENTS DAUGHTER IN LAW IMMANUEL UPDATED ON PLAN OF CARE. PATIENT PROVIDED WITH STRAWBERRY ENSURE AT THIS TIME BECAUSE SHE WAS NOT HUNGRY FOR BREAKFAST. NO OTHER NEEDS AT THIS TIME. CALL LIGHT IN REACH.
--- NOTE | 2023-11-17 12:45 | NUR ---
PATIENT IS A HOUSE CONV. PATIENT IN CCU. PATIENT TRANSFERED TO ROOM 109 VIA BED. ALL BELONGINGS SENT WITH PATIENT. PATIENT HAS HER DENTURES IN HER MOUTH AT THIS TIME. PATIENT VITALS DONE. PATIENTS RN JAMAL AT THE BEDSIDE AND WILL RESUME CARE OF PATIENT AT THIS TIME. PATIENT UPDATED ON PLAN OFCARE. PATIENT NEEDS TO GET UP AND USE THE RESTROOM AND WANTS TO WORK WITH PHYSICAL THERAPY AT THIS TIME. CALL LIGHT ON PATIENTS BED. BELONGINGS PLACED IN CLOSET.
--- NOTE | 2023-11-17 12:51 | NUR ---
PT TRANSFERRED TO ROOM 109 VIA BED, REPORT RECEIVED FROM ESTHER GIBBONS, ALL QUESTIONS ANSWERED. PT VSS, REMAINS ON 1L NC O2. PHYSICAL THERAPY IN ROOM TO WORK WITH PATIENT. PT ORIENTED TO ROOM AND CALL LIGHT. DENIES FURTHER NEEDS AT THIS TIME. CALL LIGHT IN REACH.
[2023-11-17 12:53] VITALS: BP 111/62
[2023-11-17 14:18] LABS: PROCALCITONIN 0.14 ng/mL (0.00-0.07)
--- NOTE | 2023-11-17 15:53 | NUR ---
PT ASSISTED TO RESTROOM ANBD BACK TO BED. PT DENIES FURTHER NEEDS AT THIS TIME. CALL LIGHT IN REACH.
[2023-11-17 17:59] VITALS: BP 123/77
--- NOTE | 2023-11-17 19:08 | NUR ---
SHIFT REPORT RECEIVED FROM DAYSHIFT EDWIGE BERRY AT [facility], pt ON RA, RR EVEN AND UNLABORED WITH NO DISTRESS NOTED. CALL LIGHT IN REACH.
--- NOTE | 2023-11-17 19:15 | NUR ---
PT RESTING IN BED. PT HAS NO NEEDS AT THIS TIME. LIGHTS TURNED OFF. CALL LIGHT WITHIN REACH
--- NOTE | 2023-11-17 20:26 | NUR ---
PATIENT REMAINS ON RA. TAKING OFF RT SERVICE PLEASE CALL WITH CONCERNS OR O2 USE.
[2023-11-17 21:06] VITALS: BP 103/57
--- NOTE | 2023-11-17 21:10 | NUR ---
ASSESSMENT COMPLETE, pt A/OX4-VSS. IV SITE WNL, FLUSHES EASILY. pt DENEIS PAIN AND NAUSEA, BOWEL TONES ACTIVE. LUNG SOUNDS CLEAR, FAINT CRACKLES IN LLL-pt DEMONSTRATED USE OF IS. NO DISTRESS NOTED, pt DENIES SOB OR CHEST PAIN. TELE #[address], HR WNL. NO ADDITIONAL NEEDS, CALL LIGHT IN REACH. pt DENEIS NEED TO VOID, AGREES TO CALL BEFORE GETTING OOB.
--- NOTE | 2023-11-17 23:15 | NUR ---
ROUNDED ON pt, pt RESTING IN BED WITH EYES CLOSED. ON RA, RR EVEN AND UNLABORED. NO DISTRESS NOTED, CALL LIGHT IN REACH.
[2023-11-18] VITALS (7 sets, daily range): BP systolic 93–130; BP diastolic 48–66
--- NOTE | 2023-11-18 00:45 | NUR ---
IN ROOM WITH pt TO COLLECT VS AND SECOND ASSESSMENT, pt REPORTS CHEST MUSCLE PAIN W/ COUGH, RESOLVES WHEN COUGH IS OVER. pt REPORTS SHE HAS HAD THIS SINCE BEFORE pt WAS ADMITTED TO HOSPITAL. VSS. PRN TYLENOL GIVEN PER pt REQUEST, pt STATES, "THEY GAVE IT TO ME A FEW NIGHTS AGO". NO ADDITIONAL NEEDS VERBALIZED, CALL LIGHT IN REACH.
--- NOTE | 2023-11-18 00:49 | NUR ---
pt'S DIL AND SON CALLED AND ASKED FOR UPDATE, UPDATE PROVIDED AND QUESTIOSN ANSWERED. pt INFORMED OF UPDATE AND THAT FAMILY SENDS WELL WISHES. pt DENIES NEEDS OR CONCERNS. CALL LIGHT IN REACH.
--- NOTE | 2023-11-18 04:26 | NUR ---
CALL LIGHT ANSWERED. PT UP TO BSC TO VOID 200 ML YELLOW URINE. PT INCONTINENT WELL. CLEAN BRIEF PROVIDED. PT ABLE TO DO OWN ROSLYN CARE. BACK TO BED. GAIT STEADY. NO FURTHER NEEDS.
--- NOTE | 2023-11-18 05:31 | NUR ---
pt RESTING IN BED WITH EYES CLOSED, ON RA. RR EVEN AND UNLABORED. NO DISTRESS NOTED. CALL LIGHT IN REACH.
--- NOTE | 2023-11-18 06:25 | NUR ---
VS AND I&O COMPLETED. PT RESTING IN BED, EYES CLOSED. WAKES TO VOICE. PT STATES NO OTHER NEEDS AT THIS TIME. CALL LIGHT IN REACH.
--- NOTE | 2023-11-18 06:55 | NUR ---
PT spot checked while sleeping on ra, spo2 95%. hr wnl. call light in reach.
--- NOTE | 2023-11-18 07:06 | NUR ---
REPORT RECEIVED FROM NIGHT RN, ALL QUESTIONS ANSWERED. PT RESTING IN BED WITH EYES CLOSED, RESPIRATIONS EVEN AND UNLABORED. O2 SAT 95% ON RA. CALL LIGHT WITHIN REACH.
--- NOTE | 2023-11-18 16:34 | NUR ---
PT RESTING IN BED, AWAKENS EASILY. DENIES NEEDS AT THIS TIME. CALL LIGHT IN REACH.
--- NOTE | 2023-11-18 17:18 | NUR ---
PT ASSISTED TO RESTROOM AND TO RECLINER WITH STANDBY ASSIST AND FWW. PT DENIES FURTHER NEEDS AT THSI TIME. CALL LIGHT IN REACH.
--- NOTE | 2023-11-18 19:28 | NUR ---
RECEIVED REPORT FROM DAY SHIFT RN. PATIENT IS RESTING IN BED. PATIENT DENIES ANY NEEDS AT THIS TIME. CALL LIGHT IN REACH.
--- NOTE | 2023-11-18 21:52 | NUR ---
PATIENTS IV FLUSHED AND SL PER ORDER. PATIENT ASSESMENT COMPLETED. PATIENT DENIES AND SOB. PATIENT IS ON RA. PATIENT DENIES ANY PAIN. PATIENT PROVIDED WITH WARM BLANKET AND FRESH WATER. PATIENT DENIES ANY NEEDS. CALL LIGHT IN REACH.
--- NOTE | 2023-11-19 00:02 | NUR ---
PATIENT IS RESTING IN BED WITH EYES CLOSED, RR 16. CALL LIGHT IN REACH.
--- NOTE | 2023-11-19 01:43 | NUR ---
PATIENT IS RESTING IN BED WITH EYES CLOSED, RR 16. CALL LIGHT IN REACH.
--- NOTE | 2023-11-19 04:18 | NUR ---
PATIENT IS RESTING IN BED WITH EYES CLSOED, RR 15. CALL LIGHT IN REACH.
[2023-11-19 04:55] VITALS: BP 115/46
--- NOTE | 2023-11-19 05:50 | NUR ---
PATIENT ASSISTED TO THE BR A SBA W/FWW. PATIENT ABLE TO VOID. PATIENT IS BACK IN BED RESTING. VITALS TAKEN AND RECORDED. INTAKE AND OUTPUT RECORDED. PATIENT COMPLETED IS X2. PATIENT DENIES ANY FURTHER NEEDS. CALL LIGHT IN REACH.
--- NOTE | 2023-11-19 07:37 | NUR ---
PT RESTING ON HER SIDE EYES CLOSED, BREATHING EVEN AND UNLABORED AT TIME OF SHIFT REPORT LEFT UNDISTURBED. AWAKE NOW, STATES SHE SLEPT "VERY WELL" DENIES DISCOMFORTS OR NEEDS OF. CALL LIGHT AND NEEDED ITEMS IN REACH. FRESH H20 TO BEDSIDE.
--- NOTE | 2023-11-19 08:20 | NUR ---
PT SITTING UP EATING MORNING MEAL. SHE IS UPBEAT AND TALKATIVE. DENIES NEEDS AT THIS TIME.
[2023-11-19 09:00] VITALS: BP 103/54
--- NOTE | 2023-11-19 09:06 | NUR ---
PATIENT SITTING UP IN BED. VITALS AND I&O'S DONE AND CHARTED. CALL LIGHT IN REACH. NO FURTHER NEEDS AT THIS TIME.
--- NOTE | 2023-11-19 10:32 | NUR ---
PT WORKS WITH O/T. RESTING IN BED AT THIS TIME DENIES NEEDS OF. CALL LIGHT IN HAND
[2023-11-19] MEDS ORDERED: LEVOFLOXACIN250 MG PO (11:38)
[2023-11-19 13:16] VITALS: BP 118/65
--- NOTE | 2023-11-19 13:28 | NUR ---
STAFF ASSIST TO DRESS AND GATHER PERSONAL ITEMS. PT AGREES SHE IS READY TO GO HOME.
--- NOTE | 2023-11-19 13:59 | NUR ---
UR NOTE [facility] PNEUMONIA (ISC) INPATIENT 11/18/23 VARIANCE GL DAY 2
== END 2023-11-19 13:15 | disposition home or self-care (01) | DRG 193 ==
LOC: ED 14:24 → CCU 14:25 → MS 11-16 09:58 → CCU 11-16 09:58 → MS 11-17 12:50
PROVIDERS: Emergency Medicine; ADMIT Internal Medicine; ATTEND Internal Medicine
DX: J18.9 Pneumonia, unspecified organism (principal); J96.01 Acute respiratory failure with hypoxia; R11.2 Nausea with vomiting, unspecified; E11.9 Type 2 diabetes mellitus without complications; I50.9 Heart failure, unspecified; E03.9 Hypothyroidism, unspecified; Z86.73 Personal history of transient ischemic attack (TIA), and cerebral infarction without residual deficits; Z90.710 Acquired absence of both cervix and uterus; Z98.890 Other specified postprocedural states; Z90.49 Acquired absence of other specified parts of digestive tract; Z88.5 Allergy status to narcotic agent; Z88.8 Allergy status to other drugs, medicaments and biological substances; Z79.899 Other long term (current) drug therapy; Z79.890 Hormone replacement therapy; Z87.891 Personal history of nicotine dependence; Z11.52 Encounter for screening for COVID-19
CPT/HCPCS: 36415; 71045; 80048; 80053; 81001; 83605; 83735; 83880; 84484; 85025; 87040; 87088; 87502; 92610; 93005; 93010; 93306; 94760; 96365; 96372; 96375; 96376; 97116; 97162; 97166; 97530; 97535; 99285-25; A9270; C9803; G0378; J1650; J1940; J1956; U0002

== ENCOUNTER 2025-03-17 00:25 | Emergency (ER) | payer MEDICARE ==
[~2025-03-17] VITALS: Ht 167.6 cm; Wt 71.0 kg
[~2025-03-17 00:25] MED LIST changes: +AMOX TR-K CLV1 EAC1 PO; +HYDROXYZINE HCL25 MG PO; +LEVOFLOXACIN250 MG PO; +NITROFURANTOIN100 M1 PO; +ONDANSETRON ODT4 MG PO; +VAZALORE81 MG PO
[2025-03-17 00:49] LABS: HEMATOCRIT 39.6 % (35.0-50.0); HEMOGLOBIN 13.3 g/dL (12.0-18.0); MCH 30.1 (27-36); MCHC 33.7 g/dl (30-36); MCV 89.2 fl (81-99); PLATELET COUNT 205 K/uL (140-440); RBC 4.44 M/ul (4.3-5.7); RDW 13.6 (10.5-15.0)
[2025-03-17 01:01] LABS: EOSINOPHILS, MANUAL DIFF 2; LYMPHOCYTES, MANUAL DIFF 40; MONOCYTES, MANUAL DIFF 8; NEUTROPHILS, MANUAL DIFF 50
[2025-03-17 01:11] LABS: ALBUMIN 3.4 g/dL (3.4-5.0); BILIRUBIN, TOTAL 0.3 mg/dL (0.2-1.0); BUN/CREATININE RATIO 24.41 (6.0-28.6); CALCIUM 9.2 mg/dL (8.5-10.1); CREATININE, SERUM 0.86 mg/dL (0.55-1.02); MAGNESIUM 1.8 mg/dL (1.8-2.4); PROTEIN, TOTAL 6.8 g/dL (6.4-8.2)
[2025-03-17] MEDS ORDERED: ASPIRIN 81 MG CHEW PO ONE (02:00)
[2025-03-17] MEDS ORDERED: NITROGLYCERIN 0.4 MG SUBL SL PRN (02:00)
[2025-03-17] MEDS ORDERED: NITROGLYCERIN0.4 MG SL (03:05)
[2025-03-17 03:16] VITALS: BP 120/56
--- NOTE | 2025-03-17 13:06 | EKG ---
[facility] [address] [place] [address] Signed Normal sinus rhythm Nonspecific ST abnormality Abnormal ECG When compared with ECG of 09-MAY-2024 22:43, No significant change was found Confirmed by Jody Rust DO ([id number]) on 03/17/2025 1:06:10 PM Electronically Signed By: JODY RUST DO 03/17/25 1306 PATIENT NAME: AZUCENA MEANS Electrocardiogram DATE OF : 36 PHYSICIAN: JODY RUST DO REPORT #: [id number] REPORT IS CONFIDENTIAL AND NOT TO BE RELEASED WITHOUT AUTHORIZATION
--- NOTE | 2025-03-17 13:06 | EKG ---
[facility] [address] [facility] [place] [address] Signed Normal sinus rhythm Low voltage QRS Borderline ECG When compared with ECG of 17-MAR-2025 00:26, (Unconfirmed) Nonspecific T wave abnormality now evident in Inferior leads Confirmed by Jody Rust DO ([id number]) on 03/17/2025 1:06:14 PM Electronically Signed By: JODY RUST DO 03/17/25 1306 PATIENT NAME: AZUCENA MEANS Electrocardiogram DATE OF : 36 PHYSICIAN: JODY RUST DO REPORT #: [id number] REPORT IS CONFIDENTIAL AND NOT TO BE RELEASED WITHOUT AUTHORIZATION
== END 2025-03-17 03:17 | disposition home or self-care (01) ==
LOC: ED 00:25
PROVIDERS: Emergency Medicine
DX: R07.9 Chest pain, unspecified (principal); Z79.82 Long term (current) use of aspirin; Z88.5 Allergy status to narcotic agent; Z88.8 Allergy status to other drugs, medicaments and biological substances; E11.9 Type 2 diabetes mellitus without complications
CPT/HCPCS: 36415; 70450; 71045; 80053; 83735; 83880; 84484; 85025; 85379; 93005; 93010; 99285-25; A9270